=== PATIENT | male | born 1985 | race Hispanic/Latino ===

== ENCOUNTER 2016-10-15 12:00 | Emergency (ER) | payer SELFPAY ==
[~2016-10-15] VITALS: Ht 167.6 cm; Wt 77.1 kg
[2016-10-15 12:01] VITALS: BP 146/92
--- NOTE | 2016-10-15 12:28 | ED THROAT/DENTAL COMPLAINT ---
History of Present Illness General Chief Complaint: Sore Throat, Dental Pain Stated Complaint: MOUTH PAIN X 1.5 WEEKS Source: patient Exam Limitations: no limitations Vital Signs & Intake/Output Vital Signs & Intake/Output Vital Signs Date Time Temp Pulse Resp B/P B/P Pulse O2 O2 Flow FiO2 Mean Ox Delivery Rate 10/15 1201 96.9 85 18 146/92 100 Room Air Allergies Coded Allergies: NO KNOWN ALLERGIES (07/18/15) Reconcile Medications Amoxicillin 500 MG TABLET 1 TAB PO BID DENTAL INFECTION Aspirin/Acetaminophen/Caffeine (Excedrin Migraine Geltab) 250 MG-250 MG-65 MG TABLET 2 TAB PO PRN HEADACHES (Reported) Ibuprofen 800 MG TABLET 1 TAB PO TID PRN pain Triage Note: 31 Y/O MALE C/O "MOUTH PAIN" X 1-2 WEEKS; PAIN WORSENING AFTER WAKING UP TODAY. CONCERNED HE HAS A GUM INFECTION. AFEBRILE Triage Nurses Notes Reviewed? yes Onset: Abrupt Duration: day(s):, week(s): (2), constant, continues in ED, getting worse Timing: single episode today Injury Environment: home Severity: mild, moderate Severity Numbers: 8 No Modifying Factors: none HPI: 31-year-old male with past medical history of alopecia presents complaining of pain in his right gums and jaw. Patient states pain started about 2 weeks ago and is gradually been worsening. Pain is located in the right lower gums and jaw and is worse with movement of the jaw or touching the area. He is been able to eat and drink without difficulty. No drooling no fevers. He is been taking Excedrin without any improvement. He rates the pain as an 8 out of 10 and does not radiate. There is no trauma to the jaw. He has not seen a dentist in over 10 years. No chest pain or shortness of breath no headaches. He does reports some associated sinus tenderness and congestion. (MARLYN MARTINEZ PA-C) Past History Travel History Traveled to [place] past 21 day No Medical History Any Pertinent Medical History? see below for history Neurological: NONE EENT: NONE Cardiovascular: NONE Respiratory: NONE Gastrointestinal: NONE Hepatic: NONE Renal: NONE Musculoskeletal: NONE Psychiatric: NONE Endocrine: NONE Blood Disorders: NONE Cancer(s): NONE [employer]/Reproductive: NONE Tetanus Vaccine: 07/18/15 Surgical History Surgical History: N Psychosocial History What is your primary language Maltese Tobacco Use: Current Daily Use Daily Tobacco Use Amount/Type: => 5 Cigarettes daily Family History Hx Contributory? No (MARLYN MARTINEZ PA-C) Review of Systems Review of Systems Constitutional: Reports: no symptoms. EENTM: Reports: mouth pain, tooth pain. Respiratory: Reports: no symptoms. Cardiovascular: Reports: no symptoms. GI: Reports: no symptoms. Genitourinary: Reports: no symptoms. Musculoskeletal: Reports: no symptoms. Skin: Reports: no symptoms. Neurological/Psychological: Reports: no symptoms. Hematologic/Endocrine: Reports: no symptoms. Immunologic/Allergic: Reports: no symptoms. All Other Systems: Reviewed and Negative (MICHELLE SPAIN,MARLYN) Physical Exam Physical Exam Mouth/Throat: normal mouth inspection, dental tenderness (rt lower), poor dentition eoverall. multiple rotting teeth. there is pain with palpation of the rt lower molars no swelling, erythema or focal fluctuant areas, no trismus. no lymphadenopathy. , pt is tolerating secretions Comments: General: Hemodynamically stable. Afebrile. Well-developed well-nourished person in no acute distress. Head: Atraumatic, normocephalic Eyes: EOMI bilaterally, PERRLA, conjunctiva are not injected, no discharge, no nystagmus, fundus grossly normal bilaterally Nose: Atraumatic, no rhinorrhea, mucosa is not erythematous, no epistaxis. Sinuses are non-tender Ears: TM pearly tellez color bilaterally, external canal is clear, no discharge, hearing is normal Neck: Supple, full active ROM, no lymphadenopathy, no midline tenderness to palpation, no thyromegaly, no tracheal deviation. Back: Non-tender, full active ROM, no scoliosis, no CVA tenderness Cardiovascular: regular rate and rhythm, no murmurs, rubs, or gallops. No JVD Respiratory: Chest is nontender. Regular respiratory rate and effort. No accessory muscle use. Lungs clear to auscultation bilaterally. Abdomen: Soft, non-tender, non-distended, no organomegaly. No rebound tenderness or guarding. Normoactive bowel sounds. Extremities: No edema. No gross deformities. No joint swelling. No calf swelling or tenderness. Full active and passive ROM. Strength 5/5 in upper and lower extremities. Peripheral pulses 2+ bilaterally, Patellar DTR 2+ Neuro: No confusion. Motor and sensory function is intact. Appropriate gait. Cerebellar function intact. Skin: Warm and dry. Appropriate turgor. No lesions or bruising. No appreciable rash on exposed skin. Core Measures ACS in differential dx? No Severe Sepsis Present: No Septic Shock Present: No (MARLYN MARTINEZ PA-C) Progress Differential Diagnosis: carious tooth, epiglottitis, Ludwigs angina, odontogenic abscess, chin-tonsillar abscess, pharyngeal for. body, stomatitis/gingivitis, strep pharyngitis, tooth fracture Plan of Care: Patient seen and evaluated. There is no signs of abscess. He is afebrile no trismus, no drooling no distress. Patient will be given a prescription for amoxicillin and ibuprofen 800. Also be given a list of dental clinics. Advised patient to return to the emergency department with any concerns or signs of abscess. I discussed with the patient at length all of their results. I had an extensive conversation regarding need for close follow up with their primary care physician this week as well as return precautions. I answered all of their questions, they feel comfortable with the plan and follow-up care. I discussed with the patient/family the medications that they will receive. I gave them signs and symptoms that could indicate an adverse reaction. I have advised them to limit their activities until they can see how they respond to the medication. (MARLYN MARTINEZ PA-C) Departure Departure Disposition: HOME OR SELF CARE Condition: Stable Clinical Impression Primary Impression: Pain, dental Referrals: PATIENT HAS NO PRIMARY CARE DR (PCP/Family) Additional Instructions: Rest and drink plenty of fluids. Apply ice to your jaw. Take antibiotics as directed for the full course. Use ibuprofen 800 mg every 8 hours as needed for pain. Tylenol 1000 mg can be used every 6 hours as needed for pain. Also apply Orajel and use mouthwash. Make a follow-up appointment with a dentist as soon as possible. Return to the emergency department with any concerns. Things look out for including worsening pain, swelling, drooling, fever, unable to open mouth or unable tolerate fluids. Departure Forms: Customer Survey General Discharge Information Prescriptions: Current Visit Scripts Ibuprofen 1 TAB PO TID PRN pain #30 TAB Amoxicillin 1 TAB PO BID #20 TAB (MARLYN MARTINEZ PA-C) PA/COYOTE HUNTER Co-Sign Statement Statement: ED Attending supervision documentation- I saw and evaluated the patient. I have also reviewed all the pertinent lab results and diagnostic results. I agree with the findings and the plan of care as documented in the PA's/COYOTE HUNTER's documentation. x I have reviewed the ED Record and agree with the PA's/COYOTE HUNTER's documentation. [] Additions or exceptions (if any) to the PAs/COYOTE HUNTER's note and plan are summarized below: [] (NEELA ASTORGA,KARLA)
[2016-10-15] MEDS ORDERED: EXCEDRIN MIGRA1 EACH PO (12:43)
[2016-10-15] MEDS ORDERED: AMOXICILLIN500 M3 PO (12:47)
[2016-10-15] MEDS ORDERED: IBUPROFEN800 M1 PO (12:47)
== END 2016-10-15 13:00 ==
LOC: ERH 12:00
DX: K08.89 Other specified disorders of teeth and supporting structures (principal)